=== PATIENT | female | born 1965 | race African-American/Black ===

== ENCOUNTER 2018-11-09 10:26 | Emergency (ER) | payer MEDICAID, OTHER ==
[~2018-11-09] VITALS: Ht 154.9 cm; Wt 92.1 kg
[2018-11-09 10:32] VITALS: BP 157/108
[2018-11-09] MEDS ORDERED: KETOROLAC TROMETH 60MG/2ML VIAL IM ONE (12:30)
[2018-11-09] MEDS ORDERED: METHOCARBAMOL 500 MG TAB PO ONE (12:30)
== END 2018-11-09 13:28 | disposition home or self-care (01) ==
LOC: ER 10:26
DX: M25.551 Pain in right hip (principal); M54.2 Cervicalgia; E66.01 Morbid (severe) obesity due to excess calories; Z68.38 Body mass index [BMI] 38.0-38.9, adult; V49.9XXA Car occupant (driver) (passenger) injured in unspecified traffic accident, initial encounter; Y93.I9 Activity, other involving external motion; Y92.488 Other paved roadways as the place of occurrence of the external cause; Y99.8 Other external cause status
CPT/HCPCS: 73502; 96372; 99283; J1885

== ENCOUNTER 2019-06-24 11:35 | Emergency (ER) | payer MEDICAID ==
[~2019-06-24] VITALS: Ht 154.9 cm; Wt 81.6 kg
[2019-06-24 11:45] VITALS: BP 117/78
== END 2019-06-24 12:44 | disposition home or self-care (01) ==
LOC: ER 11:35
DX: S16.1XXA Strain of muscle, fascia and tendon at neck level, initial encounter (principal); V43.52XA Car driver injured in collision with other type car in traffic accident, initial encounter; Y93.89 Activity, other specified; Y92.488 Other paved roadways as the place of occurrence of the external cause; Y99.8 Other external cause status
CPT/HCPCS: 72040

== ENCOUNTER 2019-06-30 11:53 | Emergency (ER) | payer MEDICAID ==
[~2019-06-30] VITALS: Ht 154.9 cm; Wt 81.6 kg
[2019-06-30 13:12] VITALS: BP 160/91
== END 2019-06-30 16:07 | disposition home or self-care (01) ==
LOC: ER 11:53
DX: S30.1XXD Contusion of abdominal wall, subsequent encounter (principal); X58.XXXD Exposure to other specified factors, subsequent encounter

== ENCOUNTER 2019-08-13 17:45 | Emergency (ER) | payer MEDICAID ==
[~2019-08-13] VITALS: Ht 154.9 cm; Wt 81.6 kg
[2019-08-13 18:24] VITALS: BP 159/82
== END 2019-08-13 19:08 | disposition home or self-care (01) ==
LOC: ER 17:45
DX: H10.13 Acute atopic conjunctivitis, bilateral (principal)